=== PATIENT | female | born 1995 | race African-American/Black ===

== ENCOUNTER 2017-05-01 10:06 | Emergency (ER) | payer MEDICAID ==
[~2017-05-01] VITALS: Ht 165.1 cm; Wt 52.0 kg
[2017-05-01 14:15] VITALS: BP 130/70
== END 2017-05-01 14:23 | disposition home or self-care (01) ==
LOC: ER 12:28
DX: M25.511 Pain in right shoulder (principal); Z87.81 Personal history of (healed) traumatic fracture
CPT/HCPCS: 73030; 81025; 99284

== ENCOUNTER 2017-11-29 12:27 | Emergency (ER) | payer MEDICAID ==
[~2017-11-29] VITALS: Ht 167.6 cm; Wt 65.0 kg
[2017-11-29 13:56] VITALS: BP 138/68
[2017-11-29] MEDS ORDERED: IBUPROFEN 600MG TABLET PO ONE (14:00)
== END 2017-11-29 15:04 | disposition home or self-care (01) ==
LOC: ER 12:45
DX: B34.9 Viral infection, unspecified (principal)
CPT/HCPCS: 71045; 99283